=== PATIENT | female | born 1970 | race Caucasian/White ===

== ENCOUNTER 2016-10-08 20:10 | Emergency (ER) | payer OTHER ==
[2016-10-08 20:43] VITALS: BP 134/86; PULSE 86; TEMP 97.9; BMI 35.4
--- NOTE | 2016-10-08 21:36 | PDOC ---
History of Present Illness - General Chief Complaint: Rash Stated Complaint: RASH Time Seen by Provider: 10/08/16 21:17 History Source: Patient - History of Present Illness Timing/Duration: reports: other Location: reports: scalp Past History - Past Medical History Allergies/Adverse Reactions: Allergies Allergy/AdvReac Type Severity Reaction Status Date / Time Penicillins Allergy Verified 10/08/16 20:40 Home Medications: Ambulatory Orders NK [No Known Home Medication] 06/28/14 Asthma: Yes (seasonal) Psychiatric Problems: Yes (Depression) - Family Disease History Family Disease History: Diabetes: Father, Sister, Heart Disease: Sister - Psycho/Social/Smoking Cessation Hx Anxiety: No Suicidal Ideation: No Smoking History: Never smoked Number of Cigarettes Smoked Daily: 4 Information on smoking cessation initiated: No Hx Alcohol Use: No Drug/Substance Use Hx: No Substance Use Type: None Review of Systems - Review of Systems Constitutional: No: Chills, Fever Integumentary: Yes: Pruritus, Rash *Physical Exam - Vital Signs Last Vital Signs Temp Pulse Resp BP Pulse Ox 97.9 F 86 20 134/86 100 10/08/16 20:41 10/08/16 20:41 10/08/16 20:41 10/08/16 20:41 10/08/16 20:41 - Physical Exam General Appearance: Yes: Appropriately Dressed. No: Apparent Distress HEENT: positive: Normal Voice Neck: positive: Supple Respiratory/Chest: negative: Respiratory Distress Integumentary: positive: Dry, Warm, Other (scaly patch to mid parietal area) Neurologic: positive: Fully Oriented, Alert, Normal Mood/Affect Medical Decision Making - Medical Decision Making 10/08/16 21:30 46-year-old female, no significant history here with pruritic rash to scalp 2 months. States she used a new dye in her hair 4 months ago and that rash develop 2 months after using dye. Has not used dye since. No h/o similar rash in the past per pt. States she went to see her doctor a month ago who prescribed ketoconazole shampoo and states she has been using shampoo as directed but feels like symptoms have gotten worse, not better. Denies any other symptoms at this time. Patient well-appearing and stable in ED with localized scaly patch to mid parietal region of scalp, resembling possible tinea. Given duration of symptoms and no relief w/ antifungal shampoo, will refer to dermatology at this time. nPt instructed to tale claritin or zyrtec as needed for itching 10/08/16 21:40 *DC/Admit/Observation/Transfer Diagnosis at time of Disposition: Rash - Discharge Dispostion Disposition: HOME Condition at time of disposition: Good - Referrals Referrals: Chantal Caro MD [Staff Physician] - - Patient Instructions Additional Instructions: The cause of your scalp rash is unclear at this time. Please follow-up with Dr. Caro of dermatology for evaluation
== END 2016-10-08 21:34 | disposition home or self-care (01) ==
LOC: JERFT 20:10
DX: R21 Rash and other nonspecific skin eruption (principal)
CPT/HCPCS: 99281-25

== ENCOUNTER 2021-08-15 06:03 | Emergency (ER) | payer MEDICARE, OTHER ==
[2021-08-15 06:21] VITALS: TEMP 98.5; BMI 25.4
[2021-08-15 06:41] VITALS: BP 119/82; PULSE 75
== END 2021-08-15 07:30 | disposition home or self-care (01) ==
LOC: JER 06:03
DX: R21 Rash and other nonspecific skin eruption (principal)
CPT/HCPCS: 99283-25

== ENCOUNTER 2023-06-17 08:54 | Emergency (ER) | payer MEDICARE, OTHER ==
[2023-06-17 09:02] VITALS: RESP 19; BMI 23.0
[2023-06-17] MEDS ORDERED: LISINOPRIL 5 MG TABLET ONE (09:59)
[2023-06-17] MEDS: LISINOPRIL 5 MG TABLET PO ONE (10:01)
[2023-06-17 10:32] VITALS: BP 152/96; PULSE 85; TEMP 98.8
== END 2023-06-17 10:35 | disposition home or self-care (01) ==
LOC: JERFT 08:54
DX: H10.33 Unspecified acute conjunctivitis, bilateral (principal)
CPT/HCPCS: 99283-25